=== PATIENT | female | born 1985 | race Caucasian/White ===

== ENCOUNTER 2022-04-05 13:32 | Emergency (ER) | payer OTHER, SELFPAY ==
[2022-04-05 13:56] VITALS: BP 126/83; PULSE 91; RESP 16; TEMP 36.9; O2SAT 96; BMI 20.3
--- NOTE | 2022-04-05 14:01 | DI.RAD.S_ITS ---
PROCEDURE: XR CHEST 1V INDICATIONS: SOB, asthmatic, diminished RLL TECHNIQUE: One view of the chest was acquired. COMPARISON: None. FINDINGS: Surgical changes and devices: None. Lungs and pleura: Lungs are clear. No pleural effusions or pneumothorax. Mediastinum: Mediastinal contours appear normal. Heart size is normal. Bones and chest wall: No suspicious bony lesions. Overlying soft tissues appear unremarkable. IMPRESSION: No acute cardiopulmonary abnormality. Dictated by: Antony Cuevas M.D. on 04/05/2022 at 14:37 Approved by: Antony Cuevas M.D. on 04/05/2022 at 14:37
[2022-04-05] MEDS: ALBUTEROL/IPRATROPIUM 3 ML AMPUL INH (14:07)
[2022-04-05] MEDS: ALBUTEROL HFA PREPACK 1 BOX MISC (14:33)
[2022-04-05 14:41] LABS: COVID19 -Nasal RAPID Negative (Negative)
--- NOTE | 2022-04-05 16:32 | ED.GENADULT ---
HPI - General Adult General Chief complaint: Shortness of Breath/Dyspnea Stated complaint: Asthma difficulty breathing Time Seen by Provider: 04/05/22 14:18 Related Data Previous Rx's Medication Instructions Recorded albuterol sulfate 90 mcg/actuation 2 puff inhalation Q4-6H PRN 04/05/22 aerosol inhaler shortness of breath or wheezing #8.5 grams prednisone 20 mg tablet 40 mg PO DAILY #20 tabs 04/05/22 Allergies Allergy/AdvReac Type Severity Reaction Status Date / Time egg Allergy Verified 04/05/22 14:12 Penicillins Allergy Verified 04/05/22 14:12 tree nut Allergy Verified 04/05/22 14:12 dairy Allergy Uncoded 04/05/22 14:12 pink peppercorn Allergy Uncoded 04/05/22 14:12 Exam Initial Vital Signs Initial Vital Signs: Vital Signs Temperature 98.4 F 04/05/22 13:56 Pulse Rate 91 H 04/05/22 13:56 Respiratory Rate 16 04/05/22 13:56 Blood Pressure 126/83 04/05/22 13:56 Pulse Oximetry 96 04/05/22 13:56 Oxygen Delivery Method 04/05/22 13:56 Course Orders Ordered: ED Orders 04/05/22 13:20 COVID19 -Nasal RAPID/Pre-Proc Stat 04/05/22 14:01 XR chest 1V Stat 04/05/22 14:39 RT Respiratory Nebulizer Treat RT PROTOCOL Discontinued Medications Albuterol (Albuterol Hfa Prepack) 1 box MISC SEEINSTR ONE Stop: 04/05/22 14:19 Last Admin: 04/05/22 14:33 Dose: 1 box Documented By: MR Vital Signs Vital signs: Vital Signs - 8 hr 04/05/22 13:56 Temperature 98.4 F Pulse Rate 91 H Respiratory Rate 16 Blood Pressure 126/83 Pulse Oximetry 96 Oxygen Delivery Method Room Air Medical Decision Making Lab Data Labs: Lab Results 04/05/22 Range/Units 13:20 SARS-CoV-2 (PCR) Negative (Negative) Imaging Data Chest x-ray: Radiologist's Impression: FINDINGS:? ? Surgical changes and devices:? None.? ? Lungs and pleura:? Lungs are clear.? No pleural effusions or pneumothorax.? ? Mediastinum:? Mediastinal contours appear normal.? Heart size is normal.? ? Bones and chest wall:? No suspicious bony lesions.? Overlying soft tissues appear unremarkable.? ? IMPRESSION:? No acute cardiopulmonary abnormality. ? ? ? Dictated by: Antony Cuevas M.D. on 04/05/2022 at 14:37 ? ? Discharge Plan Departure Patient Disposition: Home Clinical Impression: Asthma with exacerbation Instructions: DI for Asthma -- Adult Activity Restrictions/Additional Instructions: Thank you for coming in today I suspect that you are correct in that your asthma is reacting to something in the bed and breakfast environment. You have responded nicely to the DuoNeb treatment in the emergency department. I am hearing minimal wheezing and I see no evidence of infection or reason for continued workup or hospitalization. Please continue to use your maintenance inhaler with the budesonide and fometerol with the spacer. For acute wheezing using albuterol will be more appropriate. I have given you a small inhaler to use and a prescription to continue. For the next 4 additional days I would like you to take 40 mg of prednisone. Please follow-up with your primary care provider if your continuing to have issues I hope you are able to get to and enjoy the wedding this evening. Prescriptions: New prednisone 20 mg tablet 40 mg PO DAILY Qty: 20 0RF albuterol sulfate 90 mcg/actuation HFA aerosol inhaler 2 puff inhalation Q4-6H PRN (Reason: shortness of breath or wheezing) Qty: 8.5 0RF
[2022-04-05 16:50] VITALS: BP 110/69; PULSE 98; RESP 18; O2SAT 99
== END 2022-04-05 16:50 | disposition home or self-care (01) ==
PROVIDERS: Emergency Provider Emergency Medicine
DX: J45.901 Unspecified asthma with (acute) exacerbation (principal); Z20.822 Contact with and (suspected) exposure to COVID-19
CPT/HCPCS: 71045; 87635; 99283; C9803